=== PATIENT | male | born 1975 | race Two or more races ===

== ENCOUNTER 2016-08-28 13:57 | Emergency (ER) | payer MEDICAID ==
[~2016-08-28] VITALS: Ht 175.3 cm; Wt 72.5 kg
[~2016-08-28 13:57] MED LIST: ALBU8.5H3 INH; AZIT250T94 PO
[2016-08-28 14:01] VITALS: Ht 175.3 cm; Wt 72.5 kg
--- NOTE | 2016-08-28 15:21 | ERA ---
ER Documentation Chief Complaint Date/Time DATE: 08/28/16 TIME: 15:14 Chief Complaint headcahe with dizziness x 2 weeks HPI 41-year-old male presents with a chief complaint of headache and dizziness for the past 4 days. Son is the taco maker and seems reliable. Patient describes the headache as across the forehead and has been intermittent over the past 4 days. Patient describes the dizziness as worse when he moves his head. Patient was evaluated by another emergency department and has brought the discharge instructions with him today. Patient has been taking meclizine for the dizziness with relief as well as ibuprofen for the headache with mild to moderate relief. Symptoms have not totally subsided. Was also prescribed amoxicillin for infection and Ciprodex for ear infection. Patient describes no discomfort of the ear. Patient denies fever. Patient denies nausea, vomiting, abdominal pain, bleeding from any orifice or change in stool/ urine. There are no other associated manifestations. ROS All systems reviewed and are negative except as per history of present illness. Medications Home Meds Active Scripts Azithromycin* (Zithromax*) 250 Mg Tablet, 250 MG PO .ZPACK DIRECTED, #6 TAB TAKE 500 MG (2 TABS) THE FIRST DAY THEN 250 MG (1 TAB) DAYS 2-5 Prov:FERNANDO SABA DO 06/11/15 Albuterol Sulfate* (Proair HFA*) 8.5 Gm Hfa.aer.ad, 2 PUFF INH Q4, #1 INHALER Prov:FERNANDO SABA DO 06/11/15 Reported Medications [None] No Conflict Check 10/11/10 Allergies Allergies: Coded Allergies: No Known Drug Allergies (Verified Allergy, Mild, 10/17/10) Uncoded Allergies: NONE (Allergy, Mild, 10/11/10) PMhx/Soc History of Surgery: No Anesthesia Reaction: No Hx Neurological Disorder: No Hx Respiratory Disorders: No Hx Cardiac Disorders: No Hx Psychiatric Problems: No Hx Miscellaneous Medical Probl: No Hx Alcohol Use: No Hx Substance Use: No Hx Tobacco Use: No Physical Exam Vitals Vital Signs Date Time Temp Pulse Resp B/P Pulse Ox O2 Delivery O2 Flow Rate FiO2 08/28/16 14:01 98.2 68 18 128/79 98 Physical Exam Const: Well-appearing, smiling 41-year-old male with his family in no acute distress. Head: Atraumatic. No sinus tenderness. Eyes: Normal Conjunctiva. Unremarkable ophthalmoscope exam. Extraocular movements are intact bilaterally. PERRLA. ENT: Normal External Ears, Nose and Mouth. Otoscope exam was unremarkable. Cone light reflex seen bilaterally. No erythema or edema noted. Neck: Full range of motion..~ No meningismus. No cervical lymphadenopathy. Resp: Clear to auscultation bilaterally Cardio: Regular rate and rhythm, no murmurs Abd: Soft, non tender, non distended. Normal bowel sounds Skin: No petechiae or rashes Back: No midline or flank tenderness Ext: No cyanosis, or edema Neur: Awake and alert Psych: Normal Mood and Affect Procedures/MDM Patient was evaluated 2 days ago by another ER. Patient was prescribed meclizine and ibuprofen which have been giving patient some relief. Patient's headache is described as a tension type headache. Patient's dizziness most likely BPPV. I have instructed the patient to continue taking the medications including the antibiotics as prescribed. Have advised the patient that if symptoms do not improve when nearing the end of the aforementioned medications that he should return to the emergency department for further evaluation. At this time the patient's vitals are stable and I have very little suspicion for subarachnoid hemorrhage, spinal cord pathology, or cerebral swelling. Will discharge patient with return precautions. Have advised the patient to not return to work if symptoms interfere with his safety. Patient has acknowledged these parameters and have agreed to be reevaluated by medical professional if symptoms do not subside from a second returning for work. I have told the patient will be feels well the symptoms have subsided that he may return to work sooner if willing. Departure Diagnosis: Primary Impression: Dizziness Additional Impression: Headache Qualified Code: G44.201 - Intractable tension-type headache, unspecified chronicity pattern Condition: Stable Patient Instructions: Self-Care for Headaches, Dizziness, Unk Cause Additional Instructions: Follow up with your PCP within the next 1-3 days for a more thorough evaluation and a possible referral to a specialist. Return the the emergency department immediately if symptoms worsen or change. If you have any questions regarding medications, ask your pharmacist or us before you leave. If any adverse reactions occur while taking your medications, discontinue the treatment and return to the emergency department immediately. Take your medications as directed, and complete the entire course of treatment. If symptoms do not resolve another evaluation by medical professional for clearance before returning to work. KELLY HOLLAND PA-C Aug 28, 2016 15:21
== END 2016-08-28 15:11 | disposition home or self-care (01) ==
LOC: FTE 13:57
DX: R42 Dizziness and giddiness (principal); G44.201 Tension-type headache, unspecified, intractable
CPT/HCPCS: 99283

== ENCOUNTER 2016-09-10 01:29 | Emergency (ER) | payer MEDICAID ==
[~2016-09-10] VITALS: Ht 172.7 cm; Wt 71.5 kg
[2016-09-10 01:33] VITALS: Ht 172.7 cm; Wt 71.5 kg
--- NOTE | 2016-09-10 05:53 | RADRPT ---
PROCEDURE: CT BRAIN WITHOUT CONTRAST CLINICAL INDICATION: 41-year-old male with headaches. TECHNIQUE: The study was performed utilizing a GE [employer] VCT 64-slice CT scanner. Direct axia l sections were obtained from the foramen magnum to the vertex without the use of intravenous contra st material. Sagittal and coronal reformations were obtained. One or more the following dose reduct ion techniques were utilized: automated exposure control, adjustment of the mA and/or kV according t o patient's size or use of iterative reconstruction technique. The images were viewed on a PACS [employer]. CTD/vol = 43.7 mGy; Total Exam DLP = 720.2 mGy-cm. COMPARISON: None. FINDINGS: The ventricles have a normal size, shape and position. There is no evidence for mass effect or midl ine shift. There are no intracranial areas of abnormal attenuation. There is no evidence for acute intra or extra-axial blood. The bony calvarium is intact. The partially visualized paranasal sinuse s and mastoid air cells are without significant abnormal soft tissue. IMPRESSION: Unremarkable noncontrast CT scan of the brain. .Manuel Martinez MD, MD Date Time Electronically viewed and signed by .Manuel Martinez MD, on 09/10/2016 05:53 .[place]/
[2016-09-10] MEDS ORDERED: MECL12.574 PO (06:53)
[2016-09-10 07:05] VITALS: BP 136/89; PULSE 61; RESP 16; TEMP 97.2
--- NOTE | 2016-09-14 03:41 | ERA ---
ER Documentation Chief Complaint Date/Time DATE: 09/14/16 TIME: 03:38 Chief Complaint headache x 15 days HPI Patient returns complaining of dizziness/vertigo. Patient was in the ER a few weeks ago and had resolution of symptoms while on medication. Patient's condition has not changed from initial presentation a few weeks ago. ROS All systems reviewed and are negative except as per history of present illness. Medications Home Meds Active Scripts Meclizine Hcl* (Antivert*) 12.5 Mg Tab, 12.5 MG PO Q6H Y for DIZZINESS, #20 TAB Prov:KELLY HOLLAND PA-C 09/10/16 Azithromycin* (Zithromax*) 250 Mg Tablet, 250 MG PO .ZPACK DIRECTED, #6 TAB TAKE 500 MG (2 TABS) THE FIRST DAY THEN 250 MG (1 TAB) DAYS 2-5 Prov:FERNANDO SABA DO 06/11/15 Albuterol Sulfate* (Proair HFA*) 8.5 Gm Hfa.aer.ad, 2 PUFF INH Q4, #1 INHALER Prov:FERNANDO SABA DO 06/11/15 Reported Medications [None] No Conflict Check 10/11/10 Allergies Allergies: Coded Allergies: No Known Drug Allergies (Verified Allergy, Mild, 10/17/10) Uncoded Allergies: NONE (Allergy, Mild, 10/11/10) PMhx/Soc Medical and Surgical Hx: pt denies Medical Hx, pt denies Surgical Hx History of Surgery: No Anesthesia Reaction: No Hx Neurological Disorder: No Hx Respiratory Disorders: No Hx Cardiac Disorders: No Hx Psychiatric Problems: No Hx Miscellaneous Medical Probl: No Hx Alcohol Use: No Hx Substance Use: No Hx Tobacco Use: No Smoking Status: Never smoker Physical Exam Vitals Vital Signs Date Time Temp Pulse Resp B/P Pulse Ox O2 Delivery O2 Flow Rate FiO2 09/10/16 07:05 97.2 61 16 136/89 100 Room Air Physical Exam Const: 41-year-old male speaks Kinyar[place]anda and the tech is the microscopist. Head: Atraumatic Eyes: Normal Conjunctiva ENT: Normal External Ears, Nose and Mouth. No nystagmus. Please and Amber- Hallpike maneuvers are negative. Neck: Full range of motion..~ No meningismus. Resp: Clear to auscultation bilaterally Cardio: Regular rate and rhythm, no murmurs Abd: Soft, non tender, non distended. Normal bowel sounds Skin: No petechiae or rashes Back: No midline or flank tenderness Ext: No cyanosis, or edema Neur: Awake and alert. Webbers neuritis test unremarkable. Psych: Normal Mood and Affect Procedures/MDM Patient is 41 and presenting with now subacute persisting dizziness/vertigo. Patient has no altered mental status and no change in behavior of her life. Patient's symptoms were improved with meclizine. I spoke with my attending and we have agreed that the next would be to have him follow-up with his primary care physician to be further evaluated and possibly refer to a specialist. Will give a short course of meclizine for the time that should exist between now and when he makes the appointment for. Patient will be discharged at this time. I have very low suspicion for infectious process or cerebral bleed. Departure Diagnosis: Primary Impression: Vertigo Additional Impression: Dizziness Condition: Stable Patient Instructions: Inner Ear Problems: Causes of Dizziness (Vertigo), Managing Dizziness (Vertigo) with Medications Additional Instructions: Seguimiento con mendoza PCP dentro de los prximos 1-3 yee para ha evaluacin ms exhaustiva y ha referencia posible a un especialista. Volver el servicio de urgencias inmediatamente si los sntomas empeoran o cambiaran. Si usted tiene alguna pregunta con respecto a medicamentos, pedir mendoza farmacutico o a nosotros antes de salir. Producirse reacciones adversas mientras est tomando lupillo medicamentos, suspender el tratamiento y regresar a la kassandra de emergencias inmediatamente. [place] lupillo medicamentos jeanine lo indique y completar el curso entero de tratamiento. KELLY HOLLAND PA-C September 14, 2016 03:41
== END 2016-09-10 07:05 | disposition home or self-care (01) ==
LOC: FTE 01:29
DX: R42 Dizziness and giddiness (principal)
CPT/HCPCS: 70450; 93005; Z7502